=== PATIENT | female | born 1960 | race Caucasian/White ===

== ENCOUNTER 2017-03-03 06:01 | Inpatient (IN) | payer OTHER ==
[~2017-03-03] VITALS: Ht 154.9 cm; Wt 93.4 kg
[2017-03-03 06:36] VITALS: BP 127/71
[2017-03-03 12:04] VITALS: BP 97/59
[2017-03-03 13:16] VITALS: Ht 154.9 cm; Wt 93.4 kg
[2017-03-03 15:08] LABS: BASOPHIL % 0.1 % (0-2); PLATELET COUNT 319 x10^3mcL (130-400)
[2017-03-03 15:16] LABS: ALKALINE PHOSPHATASE 97 U/L (46-116); ALT/SGPT 21 U/L (14-59); AMYLASE 67 U/L (25-115); AST/SGOT 15 U/L (15-37); BILIRUBIN TOTAL 0.22 mg/dL (0.20-1.00); CARBON DIOXIDE 28.4 mmol/L (21-32); CHLORIDE SERUM 105 mmol/L (98-107); CREATININE SERUM 0.9 mg/dL (0.6-1.0); GFR1 > 60 mL/min; GLUCOSE SERUM 112 mg/dL (74-106); LIPASE 134 IU/L (73-393); POTASSIUM SERUM 3.1 mmol/L (3.5-5.1); SODIUM SERUM 141 mmol/L (136-145); TOTAL PROTEIN, SERUM 6.3 g/dL (6.4-8.2); TRIGLYCERIDES 121 mg/dL (<150)
[2017-03-03 15:24] LABS: ALBUMIN 3.1 g/dL (3.4-5.0); CHOLESTEROL 85 mg/dL (<200); CHOLESTEROL/HDL RATIO 2.5; FREE T4 1.53 ng/dL (0.76-1.46); FREE THYROXINE INDEX 3.6 ug/dL (1.4-4.5); HDL CHOLESTEROL 34 mg/dL (40-60); T4(THYROXINE) 10.1 ug/dL (4.7-13.3)
[2017-03-03 15:28] LABS: T3 TOTAL 1.08 ng/mL
[2017-03-03 18:32] LABS: UA SPECIFIC GRAVITY 1.015 (1.005-1.035); microscopic required? YES; urine erythrocyte 1+ (NEGATIVE)
[2017-03-03 22:29] VITALS: BP 145/89
[2017-03-04 06:23] VITALS: BP 101/71
[2017-03-04 06:30] LABS: BASOPHIL % 0.2 % (0-2); PLATELET COUNT 313 x10^3mcL (130-400)
[2017-03-04 06:43] LABS: RED CELL DISTRIBUTION WIDTH 14.6 % (11.5-14.5)
[2017-03-04 06:57] VITALS: BP 101/71
[2017-03-04 07:50] LABS: CHLORIDE SERUM 101 mmol/L (98-107); CREATININE SERUM 0.8 mg/dL (0.6-1.0); GFR1 > 60 mL/min; GLUCOSE SERUM 163 mg/dL (74-106); POTASSIUM SERUM 4.1 mmol/L (3.5-5.1); SODIUM SERUM 136 mmol/L (136-145)
[2017-03-04 07:51] LABS: CALCIUM 8.3 mg/dL (8.5-10.1); MAGNESIUM 1.8 mg/dL (1.8-2.4); PHOSPHOROUS 3.2 mg/dL (2.5-4.9)
[2017-03-04 09:55] VITALS: BP 141/80
[2017-03-04] MEDS ORDERED: APIDRA SOLOS100 U/ML SC (12:27)
[2017-03-04 18:02] VITALS: BP 124/70
[2017-03-04 21:57] VITALS: BP 126/63
[2017-03-05 01:14] VITALS: BP 137/77
[2017-03-05 05:39] VITALS: BP 128/71
[2017-03-05 09:41] VITALS: BP 140/73
[2017-03-05] MEDS ORDERED: MAXZIDE-251 TAB PO (13:36)
[2017-03-05] MEDS ORDERED: TRESIBA FL200 UNIT/1 SC (13:36)
[2017-03-05] MEDS ORDERED: BENAZEPRIL HYDR40 M1 PO (13:37)
[2017-03-05] MEDS ORDERED: METFORMIN HCL500 MG PO (13:37)
[2017-03-05] MEDS ORDERED: AMLODIPINE BESY10 M2 PO (13:38)
[2017-03-05] MEDS ORDERED: ATORVASTATIN CA40 M1 PO (13:38)
[2017-03-05] MEDS ORDERED: JANUVIA100 M1 PO (13:39)
[2017-03-05] MEDS ORDERED: NOR10T PO (13:40)
[2017-03-05] MEDS ORDERED: ROBAXIN-750750 MG PO (13:40)
[2017-03-05] MEDS ORDERED: COL100 PO (13:41)
[2017-03-05] MEDS ORDERED: ULT50 PO (13:42)
[2017-03-05] MEDS ORDERED: CEPACOL SORE TH1 LO4 MM (13:42)
[2017-03-05] MEDS ORDERED: LOV30I SC (13:43)
[2017-03-05 16:35] VITALS: BP 140/73
== END 2017-03-05 20:07 | DRG 469 ==
LOC: MU 06:01 → DU 07:30 → MU 12:13
PROVIDERS: Neuromusculoskeletal Medicine, Sports Medicine; ADMIT Family Medicine
PROC: 0SRD0J9 Replacement of Left Knee Joint with Synthetic Substitute, Cemented, Open Approach (ICD-10-PCS; principal; 2017-03-03 07:30)
DX: M17.12 Unilateral primary osteoarthritis, left knee (principal); N17.0 Acute kidney failure with tubular necrosis; D68.69 Other thrombophilia; E44.1 Mild protein-calorie malnutrition; E11.65 Type 2 diabetes mellitus with hyperglycemia; I10 Essential (primary) hypertension; E78.5 Hyperlipidemia, unspecified; E87.6 Hypokalemia; R00.0 Tachycardia, unspecified; D72.829 Elevated white blood cell count, unspecified; Z96.651 Presence of right artificial knee joint; Z68.39 Body mass index [BMI] 39.0-39.9, adult
CPT/HCPCS: 82962; 83880; 84439; 97110-GP; 97116-GP; 97139; 97530-GP; C1776; C9113; J0690; J1170; J1650; J2250; J2405; J2704; J3010; J3480; J7030; Q0092